=== PATIENT | male | born 1960 | race Caucasian/White ===

== ENCOUNTER 2021-05-30 06:56 | Day surgery (SDC) | payer OTHER, SELFPAY ==
[2021-05-03 12:24] VITALS: BMI 22.0
--- NOTE | 2021-05-29 10:50 | HO.ANESPROP2 ---
Documented by User: Kim Call NP 05/29/21 10:51 HPI - Anesthesia Eval Consult details Narrative: 60yo M for Left Eye Muscle Recession/Resection, 1 Horizontal Muscle, 1 Vertical Muscle Medically optimized per pcp [facility] Past Medical History Medical History Anemia COVID-19 vaccine series completed Degenerative lumbar disc Hypothyroid Surgical History Surgical History H/O colonoscopy Hx of cataract extraction Hx of detached retina repair Social History Social History Patient Tobacco Use Status: Never used Tobacco Advance Directives: No Advance Directives Information Provided: Yes Advance Directives on File: No Meds Allergies Allergy/AdvReac Type Severity Reaction Status Date / Time No Known Allergies Allergy Verified 05/03/21 12:27 Home Medications Medication Instructions Recorded Confirmed Last Taken Type cholecalciferol (vitamin D3) 25 125 mcg PO DAILY 05/03/21 05/03/21 Unknown History mcg (1,000 unit) capsule (Vitamin D3) cyanocobalamin (vitamin B-12) 1,000 mcg PO DAILY 05/03/21 05/03/21 Unknown History 1,000 mcg tablet (Vitamin B-12) ferrous sulfate 325 mg (65 mg 325 mg PO DAILY 05/03/21 05/03/21 Unknown History iron) tablet (iron) levothyroxine 88 mcg tablet 88 mcg PO DAILY 05/03/21 05/30/21 05/30/21 History (Synthroid) Exam Exam Date and Time: May 29, 2021 1050 Height,Weight and Vital Signs: Height 5 ft 8.5 in Weight 66.678 kg Assessment and Plan Assessment Anesthesia Assessment: Chart Reviewed Documented by User: Earnestine Joyce MD 05/30/21 08:06 [facility] Past Medical History Medical History Anemia COVID-19 vaccine series completed Degenerative lumbar disc Hypothyroid Surgical History Surgical History H/O colonoscopy Hx of cataract extraction Hx of detached retina repair History of Problems with Anesthesia: No Social History Social History Patient Tobacco Use Status: Never used Tobacco Advance Directives: No Advance Directives Information Provided: Yes Advance Directives on File: No Meds Allergies Allergy/AdvReac Type Severity Reaction Status Date / Time No Known Allergies Allergy Verified 05/03/21 12:27 Home Medications Medication Instructions Recorded Confirmed Last Taken Type cholecalciferol (vitamin D3) 25 125 mcg PO DAILY 05/03/21 05/03/21 Unknown History mcg (1,000 unit) capsule (Vitamin D3) cyanocobalamin (vitamin B-12) 1,000 mcg PO DAILY 05/03/21 05/03/21 Unknown History 1,000 mcg tablet (Vitamin B-12) ferrous sulfate 325 mg (65 mg 325 mg PO DAILY 05/03/21 05/03/21 Unknown History iron) tablet (iron) levothyroxine 88 mcg tablet 88 mcg PO DAILY 05/03/21 05/30/21 05/30/21 History (Synthroid) Exam Airway Mallampati Class: II TM Dist: >3cm Neck ROM: Full Loose/Missing/Broken Teeth: No Heart: RRR Lungs: CTA Assessment and Plan Assessment Anesthesia Assessment: Anesthesia Plan Discussed Final Anesthetic Review History of Problems with Anesthesia: No NPO: Yes ASA Class: II Final Preanesthetic Review: Meds/Allgs Chart Reviewed, Consent Obtained/Reviewed and Anes Risks/Benef Reviewed Patient Risk: Low Procedure Risk: Low Anesthetic Plan Anesthetic Plan: GA Disposition: Standard PACU
[2021-05-30] VITALS (9 sets, daily range): BP systolic 101–126; BP diastolic 49–74; PULSE 46–57; RESP 12–18; TEMP 36.2–36.3; O2SAT 97–100
[2021-05-30] MEDS: Lactated Ringers 1,000 ML 100 ML IVCONT (07:23)
[2021-05-30] MEDS: Acetaminophen 325 MG TABLET 650 MG PO (10:45)
[2021-05-30] MEDS: ondansetron HCL 4 MG/2 ML VIAL IVPUSH (10:51)
[2021-05-30] MEDS: oxyCODONE HCl Immed Release 5 MG TABLET PO (11:42)
--- NOTE | 2021-05-30 13:02 | P.OPHTHAL_ITS ---
Ophthalmology Operative Note Date of Service: 05/30/21 Narrative: Diagnosis left hypotropia and esotropia. Procedures 1. Recession of left inferior rectus muscle 7 mm 2. Recession of left medial rectus muscle [address] Garcia. Anesthesia general. Complications none. The patient was brought to the operative room placed under general anesthesia. The patient's left eye was prepped and draped in the usual sterile ophthalmic fashion. Limbal peritomies were created around the inferior and medial rectus muscles. The inferior rectus muscle was hooked and found to be scleralized to position approximately 10 mm behind the limbus. The muscle was dissected free from its underlying scar tissue leaving a normal appearing insertion approximately 6 mm behind the limbus. No other scarring was noted around the muscle which appeared to move Free into Tenons capsule. The muscle was then secured with a double- armed Vicryl suture and disinserted from the globe. It was reattached to a position 7 mm behind the original insertion. The left medial rectus muscle was then hooked and dissected free of its underlying scleralization leaving a normal appearing insertion approximately 5 mm behind the surgical limbus. The muscle was secured with a double-arm Vicryl suture and then disinserted from the globe. It was reattached to a position 4 mm behind the original insertion. Conjunctiva was closed over both muscles with interrupted Vicryl sutures. The eye was patched closed with Maxitrol ointment and the patient was awoken from general anesthesia and discharged to postoperative recovery in good condition.
== END 2021-05-30 12:25 | disposition home or self-care (01) ==
PROVIDERS: PCP Family Medicine; Visit Provider Ophthalmology
PROC: (CPT 67311; principal; 2021-05-30 08:40)
DX: H50.00 Unspecified esotropia (principal); H50.22 Vertical strabismus, left eye; H53.2 Diplopia; D64.9 Anemia, unspecified; E03.9 Hypothyroidism, unspecified; Z79.899 Other long term (current) drug therapy
CPT/HCPCS: 67311; 67314; J1100; J1885; J2250; J2405; J3010

== ENCOUNTER 2021-11-21 11:28 | Day surgery (SDC) | payer BC, SELFPAY ==
[2021-11-15 15:16] VITALS: BMI 21.3
[2021-11-21] VITALS (7 sets, daily range): BP systolic 108–123; BP diastolic 63–80; PULSE 52–70; RESP 12–16; TEMP 36.2–36.8; O2SAT 99–100
--- NOTE | 2021-11-21 13:20 | HO.ANESPROP2 ---
[facility] Past Medical History Medical History Anemia COVID-19 vaccine series completed Degenerative lumbar disc Gynecomastia, male Hypothyroid Surgical History Surgical History H/O colonoscopy Hx of cataract extraction Hx of detached retina repair Hx of eye surgery History of Problems with Anesthesia: No Social History Social History Patient Tobacco Use Status: Never used Tobacco Use of substances other than those prescribed or required for medical reasons: Yes Substance Use Frequency: Monthly Are you DNR?: No Advance Directives: No Advance Directives Information Provided: Yes Meds Allergies Allergy/AdvReac Type Severity Reaction Status Date / Time No Known Allergies Allergy Verified 05/03/21 12:27 Home Medications Medication Instructions Recorded Confirmed Last Taken Type cholecalciferol (vitamin D3) 25 125 mcg PO DAILY 05/03/21 11/21/21 Unknown History mcg (1,000 unit) capsule (Vitamin D3) cyanocobalamin (vitamin B-12) 1,000 mcg PO DAILY 05/03/21 11/21/21 Unknown History 1,000 mcg tablet (Vitamin B-12) ferrous sulfate 325 mg (65 mg 325 mg PO DAILY 05/03/21 11/21/21 Unknown History iron) tablet (iron) levothyroxine 88 mcg tablet 88 mcg PO DAILY 05/03/21 11/21/21 11/21/21 08:00 History (Synthroid) Exam Exam Date and Time: November 21, 2021 1320 Height,Weight and Vital Signs: Height 5 ft 8.5 in Weight 64.524 kg Last Vital Signs Temp 98.3 F 11/21/21 12:09 Pulse 58 11/21/21 12:09 Resp 16 11/21/21 12:09 BP 114/68 11/21/21 12:09 Pulse Ox 100 11/21/21 12:09 O2 Del Method 11/21/21 12:09 Airway Mallampati Class: III TM Dist: >3cm Neck ROM: Full Loose/Missing/Broken Teeth: No Heart: RRR Lungs: CTA Assessment and Plan Assessment Anesthesia Assessment: Anesthesia Plan Discussed and Chart Reviewed Final Anesthetic Review History of Problems with Anesthesia: No NPO: Yes ASA Class: II Final Preanesthetic Review: Meds/Allgs Chart Reviewed, Consent Obtained/Reviewed and Anes Risks/Benef Reviewed Patient Risk: Low Procedure Risk: Low Anesthetic Plan Anesthetic Plan: GA Disposition: Standard PACU
--- NOTE | 2021-11-21 15:20 | HO.OPHTHAL ---
Ophthalmology Operative Note Date of Service: 11/21/21 Narrative: Preoperative diagnosis restrictive left hypotropia. Procedures dissection of scar tissue from inferior rectus muscle. Surgeon Dr. Garcia. Anesthesia general. Complications none. The patient was brought to the operating room placed under general anesthesia. The patient's left eye was prepped and draped in the usual sterile ophthalmic fashion. A lid speculum was placed in the left eye and forced ductions showed a -4 to elevation of the left eye. Scar tissue in the fornix and over the previous inferior rectus insertion were dissected free resulting in a -2 elevation of the left eye. A peritomy was then created around the superior rectus muscle where a partially extruded retinal band and sponge together with a completely scleralized superior rectus muscle were found. Beneath the extruded retinal band was a markedly thin sclera. It was decided that point not to do a resection of the superior rectus muscle. Instead the conjunctiva and tenons were secured to a point approximately 3-4 mm behind the original insertion of the inferior rectus muscle. The patient was then awoken from general anesthesia and discharged to postoperative recovery in good condition.
== END 2021-11-21 16:35 | disposition home or self-care (01) ==
PROVIDERS: PCP Family Medicine; Visit Provider Ophthalmology
PROC: (CPT 67316; principal; 2021-11-21 13:10)
DX: H50.22 Vertical strabismus, left eye (principal); D64.9 Anemia, unspecified; E03.9 Hypothyroidism, unspecified; Z98.890 Other specified postprocedural states; Z79.899 Other long term (current) drug therapy
CPT/HCPCS: 67316; J1100; J1885; J2250; J2405; J3010